=== PATIENT | female | born 1955 | race Caucasian/White ===

== ENCOUNTER 2018-09-28 09:23 | Outpatient (CLI) | payer OTHER, SELFPAY ==
[2018-09-28 12:03] LABS: ALT 28 U/L (12-78); AST 19 U/L (15-37); Albumin 3.7 g/dL (3.4-5.0); Alkaline Phosphatase 95 U/L (46-116); Anion Gap 10.3 mmol/L (3-11); BUN 19 mg/dL (7-18); Bilirubin, Total 0.7 mg/dL (0.2-1.0); CO2 26.7 mmol/L (21.0-32.0); CREATININE 1.06 mg/dL (0.55-1.02); Calcium 9.4 mg/dL (8.5-10.1); Chloride 104 mmol/L (98-107); Cholesterol 227 mg/dL (50-200); Estimated GFR 52.53 (mL/min/1.73m2); Glucose 100 mg/dL (70-100); HDL Cholesterol 64 mg/dL (40-60); LDL CHOLESTEROL 144 mg/dL (<100); Potassium 4.5 mmol/L (3.5-5.1); Sodium 141 mmol/L (136-145); Total Protein 7.2 g/dL (6.4-8.2); Triglyceride 114 mg/dL (30-150)
== END 2018-09-28 09:43 ==
PROVIDERS: PCP Family Medicine; Visit Provider Family Medicine
DX: E78.5 Hyperlipidemia, unspecified (principal); R03.0 Elevated blood-pressure reading, without diagnosis of hypertension; F32.9 Major depressive disorder, single episode, unspecified; N95.2 Postmenopausal atrophic vaginitis
CPT/HCPCS: 36415; 80053; 80061; 83721

== ENCOUNTER 2019-03-07 08:53 | Outpatient (CLI) | payer OTHER, SELFPAY ==
--- NOTE | 2019-03-07 11:00 | DI.RAD_ITS ---
SYMPTOMS/DIAGNOSIS: PAIN LT INDEX FINGER/PIP, NO TRAUMA, M79.645 LEFT INDEX FINGER: There is mild periarticular spurring seen at the interphalangeal joint as well as metacarpal phalangeal joint. No bony erosions are seen. Mild degenerative changes are also seen in the carpal region. 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
== END 2019-03-07 09:13 ==
PROVIDERS: PCP Family Medicine; Visit Provider Family Medicine
DX: M79.645 Pain in left finger(s) (principal); M19.032 Primary osteoarthritis, left wrist; M18.12 Unilateral primary osteoarthritis of first carpometacarpal joint, left hand
CPT/HCPCS: 73140

== ENCOUNTER → 2019-09-25 01:36 | Outpatient (CLI) | payer OTHER, SELFPAY ==
[2019-09-25 12:01] LABS: ALT 30 U/L (14-59); AST 16 U/L (15-37); Albumin 3.6 g/dL (3.4-5.0); Alkaline Phosphatase 92 U/L (46-116); BUN 20 mg/dL (7-18); Bilirubin, Total 0.4 mg/dL (0.2-1.0); Calcium 9.1 mg/dL (8.5-10.1); Calculated LDL 147 mg/dL; Chloride 106 mmol/L (98-107); Cholesterol 225 mg/dL (50-200); Glucose 99 mg/dL (70-100); HDL Cholesterol 53 mg/dL (40-60); Potassium 4.8 mmol/L (3.5-5.1); Sodium 142 mmol/L (136-145); Triglyceride 125 mg/dL (30-150)
== END ==
PROVIDERS: PCP Family Medicine; Visit Provider Family Medicine
DX: E78.5 Hyperlipidemia, unspecified (principal)
CPT/HCPCS: 36415; 80053; 80061

== ENCOUNTER 2020-04-04 07:27 | Outpatient (CLI) | payer OTHER, SELFPAY ==
--- NOTE | 2020-04-04 11:20 | DI.RAD_ITS ---
EXAM: XR KNEE RT 4V AP,LAT,IRA,PAT CLINICAL HISTORY: increased pain /swelling (r) knee/fall this winter,M25.561. TECHNIQUE: 2D digital imaging was performed. FINDINGS: BONES: No acute fracture is present. No bony destructive lesion is seen. Periarticular spurring is se en in all 3 joint compartments. JOINTS: The knee is normally aligned. No joint effusion is seen. Marked joint space narrowing is seen at the patellofemoral joint. SOFT TISSUE: Normal. IMPRESSION: Osteoarthritis of the right knee. DATA REPOSITORY: RADIATION DOSE DELIVERED:
== END 2020-04-04 07:47 ==
PROVIDERS: PCP Family Medicine; Visit Provider Family Medicine
DX: M25.561 Pain in right knee (principal); M17.11 Unilateral primary osteoarthritis, right knee
CPT/HCPCS: 73564

== ENCOUNTER 2020-06-03 11:44 | Outpatient (CLI) | payer OTHER, SELFPAY ==
--- NOTE | 2020-06-03 11:57 | DI.RAD_ITS ---
EXAM: XR CHEST 2V PA LATERAL CLINICAL HISTORY: dry cough x months/non smoker R05 COUGH TECHNIQUE: 2D digital imaging was performed. COMPARISON: No exams were available for comparison FINDINGS: MEDIASTINUM: Normal. HEART: Normal. PULMONARY VASCULATURE: Normal. LUNGS: Clear. PLEURAL SPACE: No pleural effusion or pneumothorax. BONE:Degenerative changes are seen in the spine. OTHER FINDINGS:Normal. IMPRESSION: No acute pulmonary findings. DATA REPOSITORY: RADIATION DOSE DELIVERED:
== END 2020-06-03 12:04 ==
PROVIDERS: PCP Family Medicine; Visit Provider Family Medicine
DX: R05 Cough (principal)
CPT/HCPCS: 71046

== ENCOUNTER 2020-06-14 07:59 | Outpatient (CLI) | payer OTHER, SELFPAY ==
[2020-06-16 00:16] LABS: COVID-19 RT-PCR Result NEGATIVE (Negative)
== END 2020-06-14 08:19 ==
PROVIDERS: PCP Family Medicine; Visit Provider Family Medicine
DX: R05 Cough (principal)
CPT/HCPCS: U0003

== ENCOUNTER 2020-06-17 03:06 | Outpatient (CLI) | payer OTHER, SELFPAY ==
[2020-06-17] MEDS: Albuterol HFA 18 GM 200 PUFF INH IH (10:45)
[2020-06-17] MEDS: Inhaler, Assist Device 1 EACH MC (10:46)
--- NOTE | 2020-06-19 09:37 | W.PFT ---
Date of service: 06/17/20 Time of Service: 10:05 Pulmonary Function Test Result Interpretation Spirometry: Spirometry shows mild obstructive airways disease with significant bronchodilator response Lung Volumes: Showed no evidence of restriction Diffusion Capacity: Is mildly reduced even when corrected to alveolar volume Airway Pressure: Normal Impression Mild obstructive airways disease, associated with significant bronchodilator response and mild diffusion defect Clinical Correlation therefore is recommended.
== END 2020-06-17 03:26 ==
PROVIDERS: PCP Family Medicine; Visit Provider Family Medicine
DX: R05 Cough (principal)
CPT/HCPCS: 94060; 94726; 94729

== ENCOUNTER 2021-03-26 02:58 | Outpatient (CLI) | payer MEDICARE, SELFPAY ==
[2021-03-26 13:18] LABS: ALT 31 U/L (14-59); AST 12 U/L (15-37); Albumin 3.8 g/dL (3.4-5.0); Alkaline Phosphatase 98 U/L (46-116); Anion Gap 9.7 mmol/L (3-11); BUN 24 mg/dL (7-18); Bilirubin, Total 0.6 mg/dL (0.2-1.0); CO2 25.3 mmol/L (21.0-32.0); CREATININE 1.2 mg/dL (0.55-1.02); Calcium 9.3 mg/dL (8.5-10.1); Calculated LDL 155 mg/dL (<100); Chloride 106 mmol/L (98-107); Cholesterol 240 mg/dL (<200); Estimated GFR 45.09 (mL/min/1.73m2); Glucose 99 mg/dL (74-106); HDL Cholesterol 66 mg/dL (40-60); Potassium 4.5 mmol/L (3.5-5.1); Sodium 141 mmol/L (136-145); Total Protein 7.1 g/dL (6.4-8.2); Triglyceride 95 mg/dL (<150)
== END 2021-03-26 02:59 | disposition home or self-care (01) ==
LOC: LOS 02:58
PROVIDERS: PCP Family Medicine; Visit Provider Family Medicine
DX: E78.5 Hyperlipidemia, unspecified (principal)
CPT/HCPCS: 36415; 80053; 80061

== ENCOUNTER 2021-06-02 10:20 | Outpatient (REF) | payer MEDICARE, SELFPAY | END 2021-06-02 10:21 | disposition home or self-care (01) | LOC: LBN 10:20 | PROVIDERS: PCP Family Medicine; Visit Provider Physician Assistant | DX: N39.0 Urinary tract infection, site not specified (principal) | CPT/HCPCS: 87077; 87086; 87186 ==

== ENCOUNTER 2021-09-22 10:24 | Outpatient (CLI) | payer MEDICARE, SELFPAY ==
[2021-09-22 13:18] LABS: Anion Gap 9.3 mmol/L (3-11); BUN 22 mg/dL (7-18); CO2 29.7 mmol/L (21.0-32.0); CREATININE 1.1 mg/dL (0.55-1.02); Calcium 9.4 mg/dL (8.5-10.1); Calculated LDL 174 mg/dL (<100); Chloride 103 mmol/L (98-107); Cholesterol 265 mg/dL (<200); Estimated GFR 49.85 (mL/min/1.73m2); Glucose 103 mg/dL (74-106); HDL Cholesterol 58 mg/dL (40-60); Potassium 4.2 mmol/L (3.5-5.1); Sodium 142 mmol/L (136-145); Triglyceride 167 mg/dL (<150)
== END 2021-09-22 10:25 | disposition home or self-care (01) ==
LOC: LOS 10:25
PROVIDERS: PCP Family Medicine; Visit Provider Family Medicine
DX: E78.2 Mixed hyperlipidemia (principal)
CPT/HCPCS: 36415; 80048; 80061

== ENCOUNTER 2021-12-23 01:55 | Outpatient (CLI) | payer MEDICARE, SELFPAY ==
[2021-12-23 12:25] LABS: ALT 39 U/L (14-59); AST 22 U/L (15-37); Albumin 3.8 g/dL (3.4-5.0); Alkaline Phosphatase 96 U/L (46-116); Anion Gap 6.9 mmol/L (3-11); BUN 23 mg/dL (7-18); Bilirubin, Total 0.5 mg/dL (0.2-1.0); CO2 31.1 mmol/L (21.0-32.0); CREATININE 1.1 mg/dL (0.55-1.02); Calcium 9.8 mg/dL (8.5-10.1); Calculated LDL 158 mg/dL (<100); Chloride 103 mmol/L (98-107); Cholesterol 252 mg/dL (<200); Estimated GFR 49.85 (mL/min/1.73m2); Glucose 103 mg/dL (74-106); HDL Cholesterol 66 mg/dL (40-60); Sodium 141 mmol/L (136-145); Total Protein 7.2 g/dL (6.4-8.2); Triglyceride 142 mg/dL (<150)
== END 2021-12-23 01:56 | disposition home or self-care (01) ==
LOC: LBO 01:55
PROVIDERS: PCP Family Medicine; Visit Provider Family Medicine
DX: E78.2 Mixed hyperlipidemia (principal); I10 Essential (primary) hypertension
CPT/HCPCS: 36415; 80053; 80061

== ENCOUNTER → 2022-06-11 01:42 | Outpatient (CLI) | payer MEDICARE, SELFPAY ==
--- NOTE | 2022-06-11 13:57 | DI.DEXA_ITS ---
Exam(s) XR DEXA BONE DENSITY W/WO RACHAEL EXAM: XR DEXA BONE DENSITY W/WO RACHAEL CLINICAL HISTORY: screen osteoporosis, hyperlipidemia, E78.2, Z13.820, Z78.0 TECHNIQUE: COMPARISON: No exams were available for comparison FINDINGS: Lateral Spine Image: Unremarkable. No compression deformities identified. Left hip: Total T-Score: -0.1 Total Z-Score: 1.2 T- and Z-scores: Within normal limits. Lumbar Spine: Total T-Score: 1.8 Total Z-Score: 3.6 T- and Z-scores: Within normal limits. IMPRESSION: No evidence of osteoporosis.
== END ==
PROVIDERS: PCP Family Medicine; Visit Provider Family Medicine
DX: Z13.820 Encounter for screening for osteoporosis; Z78.0 Asymptomatic menopausal state
CPT/HCPCS: 77080

== ENCOUNTER 2022-11-07 13:04 | Outpatient (CLI) | payer MEDICARE, SELFPAY ==
--- NOTE | 2022-11-07 13:00 | RT.EKG_ITS ---
APPROVED REPORT Exam: Resting ECG Reason for Exam: Dizziness Patient Location: O HR:61 bpm ECG Measurements Heart Rate 61 AXIS AL 150 P 51 QRSd 112 QRS 31 QT 444 T 36 QTc 448 Conclusion Sinus rhythm...normal P axis, V-rate 50- 99 Borderline intraventricular conduction delay...QRSd >112mS Abnormal R-wave progression, early transition...QRS area>0 in V2
== END 2022-11-07 13:05 | disposition home or self-care (01) ==
LOC: DI.CM 13:06
PROVIDERS: PCP Family Medicine; Visit Provider Nurse Practitioner Family
DX: R11.0 Nausea (principal); R61 Generalized hyperhidrosis
CPT/HCPCS: 93010

== ENCOUNTER 2022-11-07 13:52 | Emergency (ER) | payer MEDICARE, SELFPAY ==
[2022-11-07] VITALS (142 sets, daily range): BP systolic 124–164; BP diastolic 64–99; PULSE 48–68; RESP 8–22; TEMP 36.4–36.5; O2SAT 99
--- NOTE | 2022-11-07 13:45 | RT.EKG_ITS ---
APPROVED REPORT Exam: Resting ECG Reason for Exam: Patient Location: E HR:53 bpm ECG Measurements Heart Rate 53 AXIS SD 148 P 72 QRSd 114 QRS 31 QT 458 T 45 QTc 430 Conclusion Sinus bradycardia...rate< 60 Posterior infarct, old...prom R T, V1-V3 or Q >40mS, V7-V9 Abnormal T, consider ischemia, lateral leads...T <-0.20mV, I aVL V5 V6 ST dep I, II, V4-6
--- OUTSIDE RECORDS SUMMARY | 2022-11-07 14:25 | XMS_ITS ---
:1955 Author Organization [facility] Address [address] [place] [address] Care Team Providers Name Role Phone Melody Matt Unavailable Unavailable PROBLEMS Type Condition ICD9-CM Code [id number] Code Onset Condition SNO MED Code Dates Status Problem Pain in M79.673 Active [id number] unspecified foot ALLERGIES Substance Reaction Event Type Date Status Latex Rash Non Drug Allergy Sep, Active Tetracycline HCl Rash Drug Allergy Sep, Active Terconazole Rash Drug Allergy Sep, Active ENCOUNTERS Encounter Location Date Diagnosis [facility] [address] [address] Sep, [place] [address] foot M72.2 [facility] [address] Jul, [place] [address] foot M72.2 [facility] [address] [place], [place] Jun, [address] IMMUNIZATIONS No Known Immunizations SOCIAL HISTORY Qualifiers Date Never Smoker REASON FOR REFERRAL FUNCTIONAL STATUS PLAN OF CARE Activity Details Follow Up prn Reason: Future Test X Foot R 3V [id number] VITAL SIGNS Height 68 in 2019-10-04 Height 68 in 2019-08-02 Weight 254 lbs 2019-10-04 Weight 252 lbs 2019-08-02 BMI 38.62 kg/m2 2019-10-04 BMI 38.31 kg/m2 2019-08-02 Temperature 97.4 degrees Fahrenheit 2019-10-04 Temperature 97.9 degrees Fahrenheit 2019-08-02 Heart Rate 56 /min 2019-10-04 Heart Rate 65 /min 2019-08-02 Respiratory Rate 18 /min 2019-10-04 Respiratory Rate 18 /min 2019-08-02 Oximetry 97 % 2019-10-04 Oximetry 97 % 2019-08-02 Blood pressure systolic 130 mm Hg 2019-10-04 Blood pressure diastolic 70 mm Hg 2019-10-04 MEDICATIONS Medication Instructions Dosage Frequency Start End Duration Statu s Date Date Pravastatin Orally Once a 1 tablet 24h 30 day(s) Act mary Sodium 20 MG day Premarin 0.625 as directed Activ e MG/GM Citalopram Orally Once a 1.5 tablet 24h Acti ve Hydrobromide 20 day MG Clobetasol Prop Externally 1 application 12h 10 day( s) Active Emollient Base Twice a day to affected 0.05 % area Meloxicam 15 MG Orally Once a 1 tablet 24h 30 day(s) Active day -OTC, HERBALS Active Varies PROCEDURES Procedure Date Ordered Result Body Site [facility]([id number]) Aug 02, 2019 RESULTS Name Result Date Reference Range X Foot R 3V 2019-08-02 Image Accessible MULTIPLE LABS 2018-09-28 REASON FOR VISIT Plantar fasciitis f/u, referral done, last seen on 08/02/19 by [facility] for Plantar fasciitis R foot-KG, Alimeds dispensed at last visit, pt states that her pain gotten better since her last , pt states thatshe is still using the alimaeds that she was given , plantar fasciitis referral done, NEW POD PATIENT , per referral from Blaine Coe D.O. 2 week hx of pain in the posterior pad of the right heel, no trauma history, no hx of similar pain, and pain is intermittent , per last office note right heel pain, likely mild plantar fasciitis versus bursitis. Plan green super feet inserts, ice, and ibuprofen , pt states she has been in pain since 06/01/19 in her right foot and the arch of her right foot -mrr, pt states she takes advil and ices her foot to no avail., Pt has inserts that her ordered off of [employer].These insoles are what Dr. Coe suggested she get., Pt has not had xrays taken. She said she suggested to Dr. Coe that maybe xrays were in order but to no avail. -mrr, updating chart Insurance Providers [facility] Member Patient Patient Patient Patient Patient Subscriber Subscriber Subscriber Group Insurance Plan Plan Plan Plan ID Relationship Address Phone Name Date of ID Name Date of No Type Insurance Insurance Insurance Coverage to Subscriber Address Phone Name Dates MVP [address] MVP self [place] [id number] HEALTHCARE [id number] [id number] SELF PAY [address] SELF PAY self [place] [id number] [place] [id number] SELF PAY self [place] [id number] [place] INSURANCE
--- NOTE | 2022-11-07 14:28 | W.ED.GENAD ---
Discharge Plan Disposition Patient Disposition: Home Condition: Stable Discharge Details Clinical Impression: Bradycardia, Nausea Primary Care Provider: Alexandra Baugh ED Provider: Marcus Mcginnis Home Meds and New Rx's Prescriptions: Continued hydrochlorothiazide 25 mg tablet 25 mg PO DAILY Label Comments: TAKE ONE TABLET BY MOUTH EVERY DAY triamcinolone acetonide 0.1 % ointment 1 applic topical BID Qty: 80 1RF Rx Instructions: to affected area PREMARIN CREAM 45 gm VG BI WEEKLY cholecalciferol (vitamin D3) 1,000 UNIT capsule 1,000 unit PO DAILY Label Comments: 06/09/16 pt reports only uses in winter months. bmr clobetasol-emollient 45 GM cream 45 gm Topical BID PRN Asmanex HFA 100 mcg/actuation HFA aerosol inhaler 1 puff inhalation BID Qty: 13 12RF albuterol sulfate 90 mcg/actuation HFA aerosol inhaler 2 inh IH QID PRN (Reason: dry cough) Qty: 18 4RF atorvastatin 40 mg tablet 40 mg PO DAILY Qty: 90 3RF Discharge Instructions Instructions: Ondansetron (By mouth), Bradycardia (ED) Additional Instructions: Please contact your primary care physician to arrange follow-up. Call first thing Wednesday morning. I have ordered a cardiac Holter monitor to expedite outpatient work-up. Return to the ER immediately for any worsening or new concerning symptoms. Referrals: Alexandra Baugh MD [Primary Care Provider] - Discharge Orders Other Ambulatory Orders: Holter Monitor (Routine) Timeframe: 1 Week Facility: [facility] - Location: Respiratory Therapy Ordered By: Marcus Mcginnis Medical Decision Making 1430 --67-year-old female with history of hyperlipidemia, hypertension, chronic kidney disease, here with nausea this morning, associated diaphoresis and generally not feeling well earlier upon waking. Patient has had no chest pain or shortness of breath. Patient seen at [facility] and had EKG that was noted to be abnormal. Consider ACS. I obtained an EKG here and reviewed and interpreted: Please see report, ST depressions are noted lead I, II, V5 and V6, sinus bradycardia. Plan to check troponin. I will give Zofran IV for nausea. -- Initial troponin negative. Patient reassessed and continues to have no chest discomfort. Nausea improved. Mild hypokalemia noted. Will give kdur 20meq PO. -- Repeat delta troponin negative. Patient reassessed and remained stable. She has had episodes of bradycardia here with resting heart rate in the 50s dropping down to 47 at the lowest. BP normal. I am concerned that bradycardia may be contributing to her symptoms today. I will ask care management assist in arranging timely outpatient follow-up with her PCP and I will order a Holter monitor to expedite outpatient work-up. Usual and customary discharge instructions were reviewed with patient including strict instructions return immediately for any worsening or new concerning symptoms Lab Data Lab results reviewed: Yes I reviewed the patient's lab results. Labs: Laboratory Tests Range/Units 11/07/22 11/07/22 11/07/22 14:25 14:25 17:10 WBC (4.4-10.8) 10^3/uL 10.05 RBC (3.93-5.22) 10^6/uL 4.25 Hgb (11.2-15.7) g/dL 13.3 Hct (36.0-46.0) % 40.5 MCV (80-95) fL 95 MCH (27.0-33.0) pg 31.3 MCHC (32.0-36.0) % 32.8 RDW (11.7-14.6) % 12.7 Plt Count (130-400) 10^3/uL 281 MPV (8.0-11.0) fL 12.2 H Immature Gran % 0.2 Neutrophils % 73.1 Lymphocytes % 21.2 Monocytes % 5.2 Eosinophils % 0.1 Basophils % 0.2 Nucleated RBC % (0.0-0.3) % 0.0 Absolute Neutrophils (1.2-6.7) 10^3/uL 7.35 H Absolute Lymphocytes (1.2-3.4) 10^3/uL 2.13 Absolute Monocytes (0.1-0.8) 10^3/uL 0.52 Absolute Eosinophils (0.0-0.7) 10^3/uL 0.01 Absolute Basophils (0.0-0.2) 10^3/uL 0.02 Sodium (136-145) mmol/L 138 Potassium (3.5-5.1) mmol/L 3.2 L Chloride (98-107) mmol/L 102 Carbon Dioxide (21.0-32.0) mmol/L 29.8 Anion Gap (3-11) mmol/L 6.2 BUN (7-18) mg/dL 18 Creatinine (0.55-1.02) mg/dL 1.0 Est GFR (CKD-EPI 2020) (mL/min/1.73m2) 62.13 Glucose (74-106) mg/dL 130 H Calcium (8.5-10.1) mg/dL 9.1 Magnesium (1.8-2.4) mg/dL 1.9 Total Bilirubin (0.2-1.0) mg/dL 0.7 AST (15-37) U/L 24 ALT (14-59) U/L 32 Alkaline Phosphatase (46-116) U/L 113 Troponin I (<or=60) ng/L < 50 < 50 Total Protein (6.4-8.2) g/dL 7.5 Albumin (3.4-5.0) g/dL 3.8 TSH (0.36-3.74) uIU/mL Range/Units 11/07/22 17:10 WBC (4.4-10.8) 10^3/uL RBC (3.93-5.22) 10^6/uL Hgb (11.2-15.7) g/dL Hct (36.0-46.0) % MCV (80-95) fL MCH (27.0-33.0) pg MCHC (32.0-36.0) % RDW (11.7-14.6) % Plt Count (130-400) 10^3/uL MPV (8.0-11.0) fL Immature Gran % Neutrophils % Lymphocytes % Monocytes % Eosinophils % Basophils % Nucleated RBC % (0.0-0.3) % Absolute Neutrophils (1.2-6.7) 10^3/uL Absolute Lymphocytes (1.2-3.4) 10^3/uL Absolute Monocytes (0.1-0.8) 10^3/uL Absolute Eosinophils (0.0-0.7) 10^3/uL Absolute Basophils (0.0-0.2) 10^3/uL Sodium (136-145) mmol/L Potassium (3.5-5.1) mmol/L Chloride (98-107) mmol/L Carbon Dioxide (21.0-32.0) mmol/L Anion Gap (3-11) mmol/L BUN (7-18) mg/dL Creatinine (0.55-1.02) mg/dL Est GFR (CKD-EPI 2020) (mL/min/1.73m2) Glucose (74-106) mg/dL Calcium (8.5-10.1) mg/dL Magnesium (1.8-2.4) mg/dL Total Bilirubin (0.2-1.0) mg/dL AST (15-37) U/L ALT (14-59) U/L Alkaline Phosphatase (46-116) U/L Troponin I (<or=60) ng/L Total Protein (6.4-8.2) g/dL Albumin (3.4-5.0) g/dL TSH (0.36-3.74) uIU/mL 0.65 HPI General Mode of arrival: ambulatory. Date/Time Provider Initiated Documentation: 11/07/22 14:05. Limitations to Documentation: no limitations. Information obtained by: patient. HPI Narrative: 67-year-old female with history of chronic kidney disease, hyperlipidemia, mild persistent asthma, hypertension, obesity, here with chief complaint of nausea. Patient notes she woke up this morning was feeling nauseous and having associated diaphoresis. Nausea was moderate and comes in waves. It has persisted all morning. She went to [facility] who got an EKG that had abnormalities and she was sent here for further evaluation. Patient denies chest pain. She denies associated shortness of breath. Related Data Home Medications Medication Instructions Recorded Confirmed Premarin Cream 45 gm vaginal BI WEEKLY 06/04/14 11/07/22 cholecalciferol (vitamin D3) 25 1,000 unit PO DAILY 09/18/15 11/07/22 mcg (1,000 unit) capsule clobetasol-emollient 0.05 % 45 gm topical BID PRN 01/16/16 11/07/22 topical cream mometasone 100 mcg/actuation HFA 1 puff inhalation BID #13 grams 11/28/21 11/07/22 aerosol inhaler (Asmanex HFA) albuterol sulfate 90 mcg/actuation 2 inh inhalation QID PRN dry cough 12/01/21 11/07/22 aerosol inhaler #18 grams atorvastatin 40 mg tablet 40 mg PO DAILY #90 tabs 12/23/21 11/07/22 triamcinolone acetonide 0.1 % 1 applic topical BID #80 grams 01/16/22 11/07/22 topical ointment hydrochlorothiazide 25 mg tablet 25 mg PO DAILY 10/02/22 11/07/22 Previous Rx's Medication Instructions Recorded mometasone 100 mcg/actuation HFA 1 puff inhalation BID #13 grams 11/28/21 aerosol inhaler (Asmanex HFA) albuterol sulfate 90 mcg/actuation 2 inh inhalation QID PRN dry cough 12/01/21 aerosol inhaler #18 grams atorvastatin 40 mg tablet 40 mg PO DAILY #90 tabs 12/23/21 triamcinolone acetonide 0.1 % 1 applic topical BID #80 grams 01/16/22 topical ointment Allergies Allergy/AdvReac Type Severity Reaction Status Date / Time latex Allergy Mild Rash Verified 11/07/22 14:01 terconazole Allergy Mild Vaginal Verified 11/07/22 14:01 Contact Dermatitis tetracycline Allergy Mild Rash Verified 11/07/22 14:01 General Stated Complaint: Chest Pain NIMESH: 3 Review of Systems Constitutional Constitutional: Denies fever(s) Cardiovascular Cardiovascular: Denies chest pain and Denies dyspnea Respiratory Respiratory: Denies dyspnea Gastrointestinal Gastrointestinal: Denies abdominal pain PFSH All Active Problems (Updated 11/07/22 @ 17:55 by Marcus Mcginnis MD) Hyperlipidemia (Acute) Chronic kidney disease, stage 3a (Acute) 12/2021, borderline, creatinine-1.1, status post remote nephrectomy Mild persistent asthma (Acute) Essential hypertension (Acute) Benign essential tremor (Acute) Dyshidrotic eczema (Acute) 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 Father , AGE 74 Diabetes Sister Depression Brother Hyperlipidemia Diabetes Brother Heart disease Son No problems noted. Son Congenital adrenal hyperplasia Maternal Grandmother , AGE 90 Heart disease Colon cancer Maternal Grandfather No problems noted. Paternal Grandmother , age 90 No problems noted. Paternal Grandfather No problems noted. Social History Smoking/Tobacco Use Status: Never Second Hand Exposure: Yes Smoking risk assessment performed?: Yes Alcohol Intake: current Alcohol Intake frequency: holidays/special occasions only Alcohol type: hard liquor Substance use type: former substance user and marijuana Caregiver/Support person: Yes Household members: spouse Housing: house Communication Needs: None Do you need help understanding health information?: Never Pets and animals: Yes Pets and animals: cat(s), bird(s) and farm animals Sexually active: Yes Do you think of yourself as: straight/heterosexual Current gender identity: decline to answer What is your relationship status?: living with partner How often do you talk on the phone with friends or family?: three or more times per week How often do you get together with friends or relatives?: once per week How often do you attend cheondoism or buddhism services?: 1-3 times per year Do you belong to any clubs or organized social groups?: yes Panel score (0-1 are the most socially isolated patients): 3 What type of physical activity do you participate in: bicycling and other Details: stationary bike Duration: 15-30 minutes/day Frequency: 1-2 times per week Johanne/Zoroastrianism: Adventism Special johanne needs: Yes (Would like a waiter/waitress club ) Seatbelt use: always Drive intox or ride w/intox cattle driver: No Do you feel safe at home: Yes Do you feel safe in your relationship?: Yes Exam Const General: cooperative and no acute distress Orientation: alert and awake HENMT Mouth: moist mucous membranes Eyes Conjunctivae: normal conjunctivae Sclera: normal sclerae Neck Neck: trachea midline Resp Auscultation: clear to auscultation bilaterally, no rales, no rhonchi and no wheezes Cardio Rate: regular rate and not tachycardic Rhythm: regular rhythm GI Palpation: soft, not firm, no guarding, no masses, not rigid and nontender Skin General skin exam: no rashes or lesions noted Other: dry Neuro General: patient alert, patient awake, patient oriented x3 and tone normal Extrem General: no calf tenderness and no edema Psych Appearance: grossly normal Mental Status: mental status grossly normal Speech and Movement: speech and movement normal Affect: anxious affect Course Vital Signs Vital signs: Vital Signs Temperature 36.4 C L 11/07/22 13:59 Pulse 57 L 11/07/22 13:59 Respiratory Rate 18 11/07/22 13:59 Blood Pressure 164/86 H 11/07/22 13:59 Pulse Oximetry 99 11/07/22 13:59 Temperature 36.4 C L 11/07/22 13:59 Temperature Source Temporal Artery Scan 11/07/22 13:59 Pulse 57 L 11/07/22 13:59 Respiratory Rate 18 11/07/22 14:02 Respiratory Effort Non-Labored 11/07/22 14:02 Respiratory Depth Normal 11/07/22 14:02 Respiratory Pattern Normal 11/07/22 14:02 Blood Pressure 164/86 H 11/07/22 13:59 Blood Pressure Position Sitting 11/07/22 13:59 Pulse Oximetry 99 11/07/22 13:59 Oxygen Delivery Method Room Air 11/07/22 13:59 Oxygen Flow Rate 0 11/07/22 13:59
--- NOTE | 2022-11-07 14:38 | DI.RAD_ITS ---
Exam(s) XR PORTABLE CHEST AP EXAM: XR PORTABLE CHEST AP CLINICAL HISTORY: chest pain. TECHNIQUE: 2D digital imaging was performed. COMPARISON: CR XR CHEST 2V PA LATERAL from 06/03/2020 FINDINGS: Single AP portable view. Heart size is upper normal. The mediastinum is not widened. In subsegmental platelike atelectasis in both lung bases. No confluent infiltrates. No pleural effu sions. IMPRESSION: There is subsegmental platelike atelectasis evident in both lung bases. DATA REPOSITORY: RADIATION DOSE DELIVERED:
[2022-11-07 14:44] LABS: Abs Immature Grans 0.02 10^3/uL (0.0-0.06); Absolute Basophil Count 0.02 10^3/uL (0.0-0.2); Absolute Eosinophil Count 0.01 10^3/uL (0.0-0.7); Absolute Lymphocyte Count 2.13 10^3/uL (1.2-3.4); Absolute Monocyte Count 0.52 10^3/uL (0.1-0.8); Absolute Neutrophil Count 7.35 10^3/uL (1.2-6.7); Basophils % 0.2; Eosinophils % 0.1; HCT 40.5 % (36.0-46.0); HGB 13.3 g/dL (11.2-15.7); Immature Grans % 0.2; Lymphocytes % 21.2; MCH 31.3 pg (27.0-33.0); MCHC 32.8 % (32.0-36.0); MCV 95 fL (80-95); MPV 12.2 fL (8.0-11.0); Monocytes % 5.2; Neutrophils % 73.1; Platelet Count 281 10^3/uL (130-400); RBC 4.25 10^6/uL (3.93-5.22); RDW 12.7 % (11.7-14.6); RDW-SD 44.7 fL; WBC 10.05 10^3/uL (4.4-10.8)
--- NOTE | 2022-11-07 14:50 | DI.VRAD_ITS ---
PROCEDURE INFORMATION: Exam: XR Chest Exam date and time: 11/07/2022 2:24 PM Age: 67 years old Clinical indication: Pain; Chest pressure TECHNIQUE: Imaging protocol: Radiologic exam of the chest. Views: 1 view. COMPARISON: CR XR CHEST 2V PA LATERAL 06/03/2020 11:54 AM FINDINGS: Lungs: Unremarkable. No consolidation. Pleural spaces: Unremarkable. No pleural effusion. No pneumothorax. Heart/Mediastinum: Unremarkable. No cardiomegaly. Bones/joints: Unremarkable. IMPRESSION: No acute findings. Dictated and Authenticated by: Honorio Jha MD. Ordering:PATRICIA Velazquez MD
[2022-11-07 14:57] LABS: ALT 32 U/L (14-59); AST 24 U/L (15-37); Albumin 3.8 g/dL (3.4-5.0); Alkaline Phosphatase 113 U/L (46-116); Anion Gap 6.2 mmol/L (3-11); BUN 18 mg/dL (7-18); Bilirubin, Total 0.7 mg/dL (0.2-1.0); CO2 29.8 mmol/L (21.0-32.0); Calcium 9.1 mg/dL (8.5-10.1); Chloride 102 mmol/L (98-107); Estimated GFR 62.13 (mL/min/1.73m2); Glucose 130 mg/dL (74-106); Magnesium 1.9 mg/dL (1.8-2.4); Potassium 3.2 mmol/L (3.5-5.1); Sodium 138 mmol/L (136-145); Total Protein 7.5 g/dL (6.4-8.2); Troponin I < 50 ng/L (<or=60)
[2022-11-07] MEDS: Ondansetron 4 MG/2 ML VIAL IVP (15:00)
[2022-11-07] MEDS: Potassium Chloride 20 MEQ TABCR PO (15:32)
[2022-11-07 17:32] LABS: Troponin I < 50 ng/L (<or=60)
[2022-11-07 17:37] LABS: TSH (W/Ref FT4) 0.65 uIU/mL (0.36-3.74)
--- NOTE | 2022-11-07 17:45 | RT.EKG_ITS ---
APPROVED REPORT Exam: Resting ECG Reason for Exam: bradycardia Patient Location: E HR:50 bpm ECG Measurements Heart Rate 50 AXIS ID 160 P 68 QRSd 117 QRS 26 QT 458 T 26 QTc 416 Conclusion Sinus bradycardia...rate< 60 Nonspecific intraventricular conduction delay...QRSd >115mS, not LBBB/RBBB
[2022-11-07] MEDS: Ondansetron O.D.T. 4 MG TABEF, 3 TABS/BTL PO (18:17)
--- NOTE | 2022-11-07 18:20 | NUR.NOTE ---
Nursing Note: Referral faxed to PCP for symptomatic bradycardia for next week.
== END 2022-11-07 18:25 | disposition home or self-care (01) ==
PROVIDERS: Emergency Provider Student in an Organized Health Care Education/Training Program; PCP Family Medicine
DX: R00.1 Bradycardia, unspecified (principal); R11.0 Nausea; E78.5 Hyperlipidemia, unspecified; E87.6 Hypokalemia; J45.30 Mild persistent asthma, uncomplicated; I12.9 Hypertensive chronic kidney disease with stage 1 through stage 4 chronic kidney disease, or unspecified chronic kidney disease; N18.9 Chronic kidney disease, unspecified; Z79.52 Long term (current) use of systemic steroids
CPT/HCPCS: 36415; 80053; 93005; 96374; 99284; 71045; 83735; 84443; 84484; 85025; 93010; 99285; J2405

== ENCOUNTER 2022-11-07 14:18 | Outpatient (REF) | payer MEDICARE, SELFPAY | END 2022-11-07 14:19 | disposition home or self-care (01) | LOC: LBN 14:18 | PROVIDERS: PCP Family Medicine; Visit Provider Nurse Practitioner Family | DX: N39.0 Urinary tract infection, site not specified (principal) | CPT/HCPCS: 87086 ==

== ENCOUNTER 2022-11-10 10:03 | Outpatient (CLI) | payer MEDICARE, SELFPAY ==
[2022-11-10 13:05] LABS: Anion Gap 7.4 mmol/L (3-11); BUN 22 mg/dL (7-18); CO2 30.6 mmol/L (21.0-32.0); CREATININE 1.1 mg/dL (0.55-1.02); Calcium 9.5 mg/dL (8.5-10.1); Chloride 102 mmol/L (98-107); Estimated GFR 55.42 (mL/min/1.73m2); Glucose 105 mg/dL (74-106); Potassium 3.8 mmol/L (3.5-5.1); Sodium 140 mmol/L (136-145)
== END 2022-11-10 10:04 | disposition home or self-care (01) ==
LOC: LOS 10:03
PROVIDERS: PCP Family Medicine; Referring Provider Nurse Practitioner Family; Visit Provider Nurse Practitioner Family
DX: E87.6 Hypokalemia (principal); I10 Essential (primary) hypertension; N18.31 Chronic kidney disease, stage 3a
CPT/HCPCS: 36415; 80048

== ENCOUNTER 2022-11-19 10:21 | Outpatient (RCR) | payer MEDICARE, SELFPAY ==
--- NOTE | 2022-11-19 10:15 | HOLTER_ITS ---
APPROVED REPORT Conclusion This is a 48-hour Holter monitor ordered for bradycardia Rhythm throughout was sinus with an average heart rate of 66. Minimum was 45, maximum 128 There were very rare isolated atrial and ventricular ectopic beats Several self-limited atrial runs occurred, generally 3-5 beats in duration There was no atrial fibrillation, no SVT, no high-grade AV block, no pauses greater than 3 seconds There appeared to be no patient symptoms
== END 2022-12-15 23:59 | disposition home or self-care (01) ==
LOC: CARDOPNVT 10:21
PROVIDERS: PCP Family Medicine; Visit Provider Student in an Organized Health Care Education/Training Program
DX: I49.8 Other specified cardiac arrhythmias (principal)
CPT/HCPCS: 93227; 93225; 93226

== ENCOUNTER 2023-03-30 03:13 | Outpatient (CLI) | payer MEDICARE, SELFPAY ==
[2023-03-30 13:19] LABS: ALT 40 U/L (14-59); Anion Gap 9.1 mmol/L (3-11); BUN 21 mg/dL (7-18); CO2 29.9 mmol/L (21.0-32.0); CREATININE 1.1 mg/dL (0.55-1.02); Calcium 9.4 mg/dL (8.5-10.1); Calculated LDL 87 mg/dL (<100); Chloride 103 mmol/L (98-107); Cholesterol 167 mg/dL (<200); Estimated GFR 55.07 (mL/min/1.73m2); Glucose 113 mg/dL (74-106); HDL Cholesterol 59 mg/dL (40-60); Potassium 3.7 mmol/L (3.5-5.1); Sodium 142 mmol/L (136-145); Triglyceride 109 mg/dL (<150)
== END 2023-03-30 03:14 | disposition home or self-care (01) ==
PROVIDERS: PCP Family Medicine; Visit Provider Family Medicine
DX: N18.31 Chronic kidney disease, stage 3a (principal); E78.2 Mixed hyperlipidemia
CPT/HCPCS: 36415; 80048; 80061; 84460

== ENCOUNTER 2023-04-06 02:57 | Outpatient (CLI) | payer MEDICARE, SELFPAY ==
[2023-04-06 12:48] LABS: Abs Immature Grans 0.02 10^3/uL (0.0-0.06); Absolute Basophil Count 0.05 10^3/uL (0.0-0.2); Absolute Eosinophil Count 0.26 10^3/uL (0.0-0.7); Absolute Lymphocyte Count 3.39 10^3/uL (1.2-3.4); Absolute Monocyte Count 0.73 10^3/uL (0.1-0.8); Absolute Neutrophil Count 2.68 10^3/uL (1.2-6.7); Basophils % 0.7; Eosinophils % 3.6; HCT 41.6 % (36.0-46.0); HGB 13.3 g/dL (11.2-15.7); Immature Grans % 0.3; Lymphocytes % 47.5; MCH 30.6 pg (27.0-33.0); MCV 96 fL (80-95); MPV 11.7 fL (8.0-11.0); Monocytes % 10.2; Neutrophils % 37.7; Platelet Count 300 10^3/uL (130-400); RBC 4.34 10^6/uL (3.93-5.22); RDW 12.8 % (11.7-14.6); RDW-SD 46.1 fL; WBC 7.13 10^3/uL (4.4-10.8)
[2023-04-09 16:27] LABS: Lyme Ab w Rflx to Lyme Confirm Negative (Negative)
[2023-04-10 18:45] LABS: Anaplasma phagocytophilum Negative (Negative); B. miyamotoi PCR Negative (Negative); Babesia divergens/MO-1 Negative (Negative); Babesia duncani Negative (Negative); Babesia microti Negative (Negative); Ehrlichia chaffeensis Negative (Negative); Ehrlichia ewingii/canis Negative (Negative); Ehrlichia muris eauclairensis Negative (Negative)
== END 2023-04-06 02:58 | disposition home or self-care (01) ==
LOC: LBO 02:57
PROVIDERS: PCP Family Medicine; Visit Provider Physician Assistant
DX: N18.31 Chronic kidney disease, stage 3a; E78.5 Hyperlipidemia, unspecified
CPT/HCPCS: 36415; 87798; 85025; 86618

== ENCOUNTER 2023-05-25 00:22 | Outpatient (CLI) | payer MEDICARE, SELFPAY ==
--- NOTE | 2023-05-25 06:45 | ETT_ITS ---
APPROVED REPORT Exam: Exercise Treadmill Patient Location: Out-Patient Room/Bed: Stress Nurse: Kourtney Dobson RN Ordering Provider:FAY IZAGUIRRE MD, Contact Number: [phone] BMI: 42.44 Baseline Rhythm: Sinus Bradycardia Indications: RIZO, Medical History Medical History: HLD, CKD, Asthma, HTN, obesity, depression Cardiac Medications: Atorvastatin, HTZ, albuterol sulfate Allergies: Latex, terconazole, tetracycline Cardiac Risk Factors: Family hx, HTN, HLD, obesity, asthma Previous Cardiac Procedures: None Pretest Chest Pain Characteristics: None Exercise History: Indeterminate Physical Disabilities: None Lung Sounds: Clear to auscultation Heart Sounds: Regular Stress Test Details Test: Exercise stress testing was performed using a Corey protocol. Rest Stress HR Resting HR Supine: 59 bpm Max Heart Rate (APMHR): 153 bpm Resting HR Standin bpm Target HR (85% APMHR): 130 bpm Max HR Achieved: 152 bpm % of APMHR: 99 Recovery HR: 77 bpm HR response to stress: Normal HR response to stress BP Resting BP Supine: 140/82 mmHg Resting BP Standin/92 mmHg Max BP: 210/82 mmHg Recovery BP: 146/58 mmHg BP response to stress: Abnormal hypertensive response to stress. ECG Resting ECG: Sinus Bradycardia Ectopy: None Stress ECG: Sinus Tachycardia ST Change: No significant ST segment changes noted Arrhythmia: Rare PVC Recovery ECG: Sinus Rhythm Recovery ST Change: No significant ST segment changes noted Recovery Arrhythmia: None Clinical Reason for Termination: Target HR Achieved, Fatigue, Dyspnea Stress Symptoms: Mild Dyspnea, fatigue Exercise duration: 03 min32 sec Highest Stage Reached: Stage 2: 2.5 mph at 12% grade. Exercise capacity: 5.27 METs Angina Score: None Bergeron Treadmill Score: 3.2 Rate Pressure Product: [id number] Stress ECG Conclusion 1. Resting electrocardiogram was normal 2. Patient exercised on the Corey protocol and completed a workload of 5.27 METS 3. Mildly hypertensive blood pressure response to exercise. Normal heart rate response to exercise. Patient achieved 99% of predicted heart rate for age 4. There was no electrocardiographic evidence of myocardial ischemia 5. There were no significant dysrhythmias Bergeron Treadmill Score is 3.2 which is Moderate risk. Stress Test Summary STAGE Time (mins) Speed (mph) Grade (%) HR BP SpO2 SYMPTOMS METS Supine 59 140/82 97 Standing 65 148/92 97 1 3 1.7 10 152 Mild dyspnea 4.5 1 min recovery 124 210/82 3 min recovery 72 190/82 98 6 min recovery 77 146/68 96 All symptoms resolved.
== END 2023-05-25 00:42 ==
LOC: DI 00:22
PROVIDERS: PCP Family Medicine; Visit Provider Family Medicine
DX: R06.09 Other forms of dyspnea (principal)
CPT/HCPCS: 93016; 93018; 93017

== ENCOUNTER 2023-10-15 16:52 | Emergency (ER) | payer MEDICARE, SELFPAY ==
[2023-10-15 17:07] VITALS: BP 155/77; PULSE 60; RESP 18; TEMP 36; O2SAT 100
[2023-10-15 17:58] VITALS: BP 143/71; PULSE 49; RESP 16; O2SAT 100
[2023-10-15 17:59] VITALS: BP 143/71; PULSE 50; RESP 18; TEMP 36.4; O2SAT 100
--- NOTE | 2023-10-15 18:15 | RT.EKG_ITS ---
APPROVED REPORT Exam: Resting ECG Reason for Exam: epigastric pain Patient Location: E HR:57 bpm ECG Measurements Heart Rate 57 AXIS DC 152 P 64 QRSd 121 QRS 48 QT 470 T 48 QTc 457 Conclusion Sinus bradycardia...rate< 60 Nonspecific intraventricular conduction delay...QRSd >115mS, not LBBB/RBBB There are no significant changes compared to prior EKG performed on 11/07/2022 at 14:07.
[2023-10-15 19:20] LABS: Abs Immature Grans 0.03 10^3/uL (0.0-0.06); Absolute Basophil Count 0.03 10^3/uL (0.0-0.2); Absolute Eosinophil Count 0.02 10^3/uL (0.0-0.7); Absolute Lymphocyte Count 1.59 10^3/uL (1.2-3.4); Absolute Monocyte Count 0.68 10^3/uL (0.1-0.8); Basophils % 0.3; Eosinophils % 0.2; HCT 40.1 % (36.0-46.0); HGB 13.5 g/dL (11.2-15.7); Immature Grans % 0.3; Lymphocytes % 15.7; MCH 31.5 pg (27.0-33.0); MCHC 33.7 % (32.0-36.0); MCV 94 fL (80-95); MPV 11.7 fL (8.0-11.0); Monocytes % 6.7; Neutrophils % 76.8; Platelet Count 265 10^3/uL (130-400); RBC 4.28 10^6/uL (3.93-5.22); RDW-SD 44.6 fL; WBC 10.15 10^3/uL (4.4-10.8)
[2023-10-15] MEDS: Metoclopramide 10 MG/2 ML VIAL 5 MG IVP (19:28)
[2023-10-15] MEDS: Normal Saline 500 ML 1000 ML IV (19:28)
[2023-10-15 19:38] LABS: Bilirubin Negative (Negative); Blood Negative (Negative); Clarity Clear (Clear); Glucose Negative (Negative); Ketones 15 mg/dL (Negative); Leukocyte Esterase Small (Negative); Nitrite Negative (Negative); Specific Gravity 1.025 (1.005-1.025); Urobilinogen 0.2 mg/dL (Up to 0.2); pH 7.5 (5-8)
[2023-10-15 19:49] LABS: Bacteria Few HPF (Negative); C & S Indicated? No/Sq. Contamination; Casts Negative LPF (Negative); Crystals Negative HPF (Negative); Epithelial Cells Many HPF (Negative); Mucus Negative (Negative); RBC 0-2 HPF (0-2)
--- NOTE | 2023-10-15 20:11 | W.ED.GENAD ---
Discharge Plan Disposition Patient Disposition: Home Discharge Details Clinical Impression: Nausea & vomiting Primary Care Provider: Alexandra Baugh ED Provider: Jackie Del Angel Home Meds and New Rx's Prescriptions: New metoclopramide HCl [Reglan] 10 mg tablet 10 mg PO Q6H 7 Days Qty: 28 0RF magnesium chloride 64 mg tablet,delayed release (DR/EC) 64 mg PO QHS Qty: 14 0RF Continued hydrochlorothiazide 25 mg tablet 25 mg PO DAILY Patient Comments: TAKE ONE TABLET BY MOUTH EVERY DAY atorvastatin 40 mg tablet 40 mg PO DAILY Qty: 90 3RF albuterol sulfate 90 mcg/actuation HFA aerosol inhaler 2 inh IH QID PRN (Reason: dry cough) Qty: 18 4RF Asmanex HFA 100 mcg/actuation HFA aerosol inhaler 1 puff inhalation BID Qty: 13 12RF amlodipine 5 mg tablet 5 mg PO DAILY Qty: 90 3RF triamcinolone acetonide 0.1 % ointment 1 applic topical BID Qty: 80 1RF Rx Instructions: to affected area potassium chloride 10 mEq tablet extended release 10 meq PO BID tacrolimus 0.1 % ointment 1 applic topical BID Patient Comments: APPLY TOPICALLY TWICE A DAY estradiol 0.01 % (0.1 mg/gram) cream 1 appful vaginal .2xw cholecalciferol (vitamin D3) 1,000 UNIT capsule 1,000 unit PO DAILY Patient Comments: 06/09/16 pt reports only uses in winter months. bmr clobetasol-emollient 45 GM cream 45 gm Topical BID PRN Discharge Instructions Instructions: Acute Nausea and Vomiting (ED) Additional Instructions: Take Reglan as needed for nausea and vomiting Temporarily stop taking your amlodipine Take 20 mEq of potassium in the morning and 20 in the evening for the next 3 days Take magnesium daily Return earlier should he have new or worsening complaints Referrals: Alexandra Baugh MD [Primary Care Provider] - Discharge Data Discharge Date/Time-TO BE ENTERED AT DEPARTURE: 10/15/23 21:39 Medical Decision Making 68-year-old female with history of nausea and vomiting, denies any significant abdominal pain, some cramping in upper quadrant on left, denies chest pain or shortness of breath. States she received RSV vaccine yesterday and started amlodipine today as well. Abdomen with tenderness left upper quadrant, no rebound or guarding, alert and oriented, moist weakness membranes, no pallor, distal pulses intact Feeling symptomatic improvement after IV fluids and antiemetics, able to tolerate p.o., requesting discharge home BUN elevated likely consistent with dehydration, given 2 L and able to tolerate p.o. fluids Hypokalemic, will increase potassium consumption follow-up with PCP closely in the outpatient setting, will temporarily have patient discontinue amlodipine and follow-up with her doctor tomorrow Return precautions reviewed and patient expressed understanding Feeling improved at time of discharge home CT scan was ordered of abdomen and pelvis was did not show significant acute abnormality per radiology interpretation my review Urinalysis with 10-20 white blood cells, epithelials noted, do not suspect patient has urinary tract infection and will not treat with antibiotics at this time symptoms and Return precautions reviewed and patient expressed understanding Of note also mild hypomagnesemia, 1.7, patient will supplement with magnesium as well Antiemetics applied for home HPI General Date/Time Provider Initiated Documentation: 10/15/23 17:44. HPI Narrative: 68-year-old female presents with report of nausea, vomiting chills, chills, abdominal pain. She states that she started on a new blood pressure medicine and she received her RSV vaccine yesterday and is wondering if this is contributing to her symptoms. She states her symptoms started abruptly at 3:00 and she became nauseous and vomited. She denies any blood in vomitus. She denies any blood in her stool. She denies any current chest pain or shortness of breath. Related Data Home Medications Medication Instructions Recorded Confirmed cholecalciferol (vitamin D3) 25 1,000 unit PO DAILY 09/18/15 10/15/23 mcg (1,000 unit) capsule clobetasol-emollient 0.05 % 45 gm topical BID PRN 01/16/16 10/15/23 topical cream triamcinolone acetonide 0.1 % 1 applic topical BID #80 grams 01/16/22 10/15/23 topical ointment hydrochlorothiazide 25 mg tablet 25 mg PO DAILY 10/02/22 10/15/23 albuterol sulfate 90 mcg/actuation 2 inh inhalation QID PRN dry cough 12/11/22 10/15/23 aerosol inhaler #18 grams atorvastatin 40 mg tablet 40 mg PO DAILY #90 tabs 12/11/22 10/15/23 mometasone 100 mcg/actuation HFA 1 puff inhalation BID #13 grams 12/11/22 10/15/23 aerosol inhaler (Asmanex HFA) estradiol 0.01% (0.1 mg/gram) 1 appful vaginal .2xw 04/09/23 10/15/23 vaginal cream potassium chloride 10 mEq 10 meq PO BID 04/09/23 10/15/23 tablet,extended release tacrolimus 0.1 % topical ointment 1 applic topical BID 04/09/23 10/15/23 amlodipine 5 mg tablet 5 mg PO DAILY #90 tabs 10/13/23 10/15/23 magnesium chloride 64 mg 64 mg PO QHS #14 tabs 10/15/23 (magnesium chloride) tablet,delayed release metoclopramide HCl 10 mg tablet 10 mg PO Q6H 7 days #28 tabs 10/15/23 (Reglan) Previous Rx's Medication Instructions Recorded triamcinolone acetonide 0.1 % 1 applic topical BID #80 grams 01/16/22 topical ointment albuterol sulfate 90 mcg/actuation 2 inh inhalation QID PRN dry cough 12/11/22 aerosol inhaler #18 grams atorvastatin 40 mg tablet 40 mg PO DAILY #90 tabs 12/11/22 mometasone 100 mcg/actuation HFA 1 puff inhalation BID #13 grams 12/11/22 aerosol inhaler (Asmanex HFA) amlodipine 5 mg tablet 5 mg PO DAILY #90 tabs 10/13/23 magnesium chloride 64 mg 64 mg PO QHS #14 tabs 10/15/23 (magnesium chloride) tablet,delayed release metoclopramide HCl 10 mg tablet 10 mg PO Q6H 7 days #28 tabs 10/15/23 (Reglan) Allergies Allergy/AdvReac Type Severity Reaction Status Date / Time latex Allergy Mild Rash Verified 10/15/23 17:10 terconazole Allergy Mild Vaginal Verified 10/15/23 17:10 Contact Dermatitis tetracycline Allergy Mild Rash Verified 10/15/23 17:10 General Stated Complaint: Nausea/Vomit/Diar NIMESH: 3 PFSH All Active Problems (Updated 10/15/23 @ 21:31 by COLLIN Burt) Nausea & vomiting (Acute) Morbid obesity with BMI of 40.0-44.9, adult (Acute) Primary osteoarthritis of right knee (Acute) Fasting hyperglycemia (Acute) 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 Papanicolaou smear of vagina with atypical squamous cells of undetermined significance (ASC-US) Surgical History Colonoscopy - MAC (06/09/16) History of unilateral nephrectomy Family History Mother , AGE 86 No problems noted. Father , AGE 74 Diabetes Sister Depression Brother Hyperlipidemia Diabetes Brother Heart disease Son No problems noted. Son Congenital adrenal hyperplasia Maternal Grandmother , AGE 90 Heart disease Colon cancer Maternal Grandfather No problems noted. Paternal Grandmother , age 90 No problems noted. Paternal Grandfather No problems noted. Social History (Updated 04/09/23 @ 09:11 by Viviana Vaughn RN, RN) Smoking/Tobacco Use Status: Never Second Hand Exposure: Yes Smoking risk assessment performed?: Yes Alcohol Intake: current Alcohol Intake frequency: holidays/special occasions only Alcohol type: hard liquor Substance use type: former substance user and marijuana Caregiver/Support person: Yes Household members: spouse Housing: house Communication Needs: None Do you need help understanding health information?: Never Pets and animals: Yes Pets and animals: cat(s), bird(s) and farm animals Sexually active: Yes Do you think of yourself as: straight/heterosexual Current gender identity: decline to answer What is your relationship status?: living with partner How often do you talk on the phone with friends or family?: twice per week How often do you get together with friends or relatives?: once per week How often do you attend muslim or holiness services?: 1-3 times per year Do you belong to any clubs or organized social groups?: yes Panel score (0-1 are the most socially isolated patients): 3 What type of physical activity do you participate in: walking, bicycling and other Details: stationary bike Duration: < 15 minutes/day Frequency: 1-2 times per week Johanne/Presybeterian: Adventism Special johanne needs: Yes (Would like a sawmill hand ) Seatbelt use: always Drive intox or ride w/intox class b truck driver: No Do you feel safe at home: Yes Do you feel safe in your relationship?: Yes Course Vital Signs Vital signs: Vital Signs Temperature 36 C L 10/15/23 17:07 Pulse 60 10/15/23 17:07 Respiratory Rate 18 10/15/23 17:07 Blood Pressure 155/77 H 10/15/23 17:07 Pulse Oximetry 100 10/15/23 17:07 Temperature 36.4 C L 10/15/23 17:59 Temperature Source Temporal Artery Scan 10/15/23 17:59 Pulse 50 L 10/15/23 17:59 Respiratory Rate 18 10/15/23 17:59 Respiratory Effort Normal, Non-Labored 10/15/23 17:12 Blood Pressure 143/71 H 10/15/23 17:59 Blood Pressure Position Supine 10/15/23 17:59 Pulse Oximetry 100 10/15/23 17:59 Oxygen Delivery Method Room Air 10/15/23 17:59 Oxygen Flow Rate 0 10/15/23 17:58 Lab/Test Results Lab/Test Results: Laboratory Tests Range/Units 10/15/23 10/15/23 19:11 19:30 WBC (4.4-10.8) 10^3/uL 10.15 RBC (3.93-5.22) 10^6/uL 4.28 Hgb (11.2-15.7) g/dL 13.5 Hct (36.0-46.0) % 40.1 MCV (80-95) fL 94 MCH (27.0-33.0) pg 31.5 MCHC (32.0-36.0) % 33.7 RDW (11.7-14.6) % 13.0 Plt Count (130-400) 10^3/uL 265 MPV (8.0-11.0) fL 11.7 H Immature Gran % 0.3 Neutrophils % 76.8 Lymphocytes % 15.7 Monocytes % 6.7 Eosinophils % 0.2 Basophils % 0.3 Nucleated RBC % (0.0-0.3) % 0.0 Absolute Neutrophils (1.2-6.7) 10^3/uL 7.80 H Absolute Lymphocytes (1.2-3.4) 10^3/uL 1.59 Absolute Monocytes (0.1-0.8) 10^3/uL 0.68 Absolute Eosinophils (0.0-0.7) 10^3/uL 0.02 Absolute Basophils (0.0-0.2) 10^3/uL 0.03 Sodium Cancelled Potassium Cancelled Chloride Cancelled Carbon Dioxide Cancelled Anion Gap Cancelled BUN Cancelled Creatinine Cancelled Est GFR (CKD-EPI 2020) Cancelled Glucose Cancelled Calcium Cancelled Magnesium Cancelled Total Bilirubin Cancelled AST Cancelled ALT Cancelled Alkaline Phosphatase Cancelled Troponin I Cancelled Total Protein Cancelled Albumin Cancelled Lipase Cancelled Urine Color (Yellow) Yellow Urine Clarity (Clear) Clear Urine pH (5-8) 7.5 Ur Specific Mcgrath (1.005-1.025) 1.025 Urine Protein (Negative) mg/dL Negative Urine Ketones (Negative) mg/dL 15 H Urine Blood (Negative) Negative Urine Nitrite (Negative) Negative Urine Bilirubin (Negative) Negative Urine Urobilinogen (Up to 0.2) mg/dL 0.2 Ur Leukocyte Esterase (Negative) Small H Urine RBC (0-2) HPF 0-2 Urine WBC (0-5) HPF 10-20 H Ur Epithelial Cells (Negative) HPF Many Urine Crystals (Negative) HPF Negative Urine Bacteria (Negative) HPF Few Urine Casts (Negative) LPF Negative Urine Mucus (Negative) Negative Ur Culture Indicated? No/Sq. Contamination Urine Glucose (Negative) mg/dL Negative
[2023-10-15 20:13] LABS: COVID-19 PCR Negative (Negative); Influenza A PCR Negative (Negative); Influenza B PCR Negative (Negative); RSV PCR Negative (Negative)
[2023-10-15 20:16] LABS: Source NASOPHARYNX
[2023-10-15 20:21] LABS: ALT 33 U/L (14-59); AST 21 U/L (15-37); Albumin 3.6 g/dL (3.4-5.0); Alkaline Phosphatase 105 U/L (46-116); Anion Gap 9.1 mmol/L (3-11); BUN 26 mg/dL (7-18); Bilirubin, Total 0.7 mg/dL (0.2-1.0); CO2 27.9 mmol/L (21.0-32.0); Calcium 9.3 mg/dL (8.5-10.1); Chloride 103 mmol/L (98-107); Estimated GFR 61.75 (mL/min/1.73m2); Glucose 144 mg/dL (74-106); Magnesium 1.7 mg/dL (1.8-2.4); Potassium 3.3 mmol/L (3.5-5.1); Sodium 140 mmol/L (136-145); Total Protein 7.1 g/dL (6.4-8.2); Troponin I < 50 ng/L (<or=60)
[2023-10-15 20:27] LABS: Lipase 37 U/L (16-77)
[2023-10-15 20:36] VITALS: BP 140/67; PULSE 70; RESP 18; O2SAT 100
[2023-10-15] MEDS: Normal Saline - Diluent 50 ML VIAL IJ (20:39)
[2023-10-15] MEDS: Omnipaque 350 MG/ML 100 ML BTL IJ (20:39)
[2023-10-15] MEDS: Normal Saline Flush 10 ML SYR IVP (20:40)
--- NOTE | 2023-10-15 20:52 | DI.CT_ITS ---
Exam(s) CT ABDOMEN PELVIS W EXAM: CT ABDOMEN PELVIS W CLINICAL HISTORY: ruq pain. TECHNIQUE: Imaging Protocol: Axial computed tomography images with coronal and sagittal reformatted images were created and reviewed CONTRAST MATERIAL: Intravenous: Omnipaque-350 100cc Oral: None COMPARISON: No exams were available for comparison FINDINGS: VISUALIZED LUNG BASES: No nodules nor pleural effusions evident. ABDOMEN: There is no ascites. LIVER: There are no focal hepatic lesions evident. No dilated intrahepatic ducts. GALLBLADDER/BILIARY: No obvious gallbladder pathology. CBD is not dilated. PANCREAS: No evidence of pancreatic mass nor dilatation of the pancreatic duct. SPLEEN: Spleen is not enlarged. No obvious intrasplenic lesions. Splenic and portal veins are paten t. ADRENALS: There are no significant adrenal masses. Both adrenals appear unremarkable. KIDNEYS:There is a solitary left kidney. Measures normal size. No solid renal masses. No calculi n or hydronephrosis.. The right kidney is not seen and there is no evidence of an atrophic right kidne y nor pelvic kidney. No surgical clips evident in the renal fossa. ABDOMINAL AORTA: Abdominal aorta is not enlarged. LYMPH NODES:There is no retroperitoneal nor paraaortic adenopathy. ABDOMINAL WALL: No evidence of significant anterior abdominal wall nor inguinal hernia. GI: There is no evidence of bowel obstruction, free air, nor abscess. PELVIS: GI: No evidence of appendicitis.No evidence of sigmoid diverticulitis. LYMPH NODES: There is no intrapelvic nor inguinal adenopathy. REPRODUCTIVE: Uterus and adnexal regions appear unremarkable. There is no free fluid in the pelvis. URINARY BLADDER: No calculi nor obvious masses evident OSSEOUS: No fractures and no significant osseous lesions. IMPRESSION: 1. No acute findings in the abdomen and pelvis. 2. There is a solitary normal appearing left kidney noted. No surgical clips in the right renal efren a and no evidence of atrophic right kidney. 3. No obvious abnormality in the urinary bladder. RADIATION DOSE DELIVERED: Total DLP DATA REPOSITORY: All CT scans at this facility are submitted to the National Radiology Data Registry (NRDR) Dose Index Registry (DIR) with the [employer] (ACR). RADIATION OPTIMIZATION: All CT scans at this facility use at least one of these dose optimization te chniques: automated exposure control; mA and/or kV adjustment per patient size (includes targeted exa ms where dose is matched to clinical indication); or iterative reconstruction.
--- NOTE | 2023-10-15 21:07 | DI.VRAD_ITS ---
PROCEDURE INFORMATION: Exam: CT Abdomen And Pelvis With Contrast Exam date and time: 10/15/2023 8:41 PM Age: 68 years old Clinical indication: Abdominal pain; Other: Ruq TECHNIQUE: Imaging protocol: Computed tomography of the abdomen and pelvis with contrast. Contrast material: OMNI 350; Contrast volume: 100 ml; Contrast route: INTRAVENOUS (IV); COMPARISON: CR XR PORTABLE CHEST AP 11/07/2022 2:24 PM FINDINGS: Liver: Hepatomegaly and diffuse fatty infiltrationNo mass. Gallbladder and bile ducts: Normal. No calcified stones. No ductal dilation. Pancreas: Normal. No ductal dilation. Spleen: Normal. No splenomegaly. Adrenal glands: Normal. No mass. Kidneys and ureters: Right kidney not visualized. No hydronephrosis. Stomach and bowel: Unremarkable. No obstruction. No mucosal thickening. Appendix: No evidence of appendicitis. Intraperitoneal space: Unremarkable. No free air. No significant fluid collection. Vasculature: Unremarkable. No abdominal aortic aneurysm. Lymph nodes: Unremarkable. No enlarged lymph nodes. Urinary bladder: Unremarkable as visualized. Reproductive: Unremarkable as visualized. Bones/joints: Degenerative changes in the spine No acute fracture. Soft tissues: Unremarkable. IMPRESSION: No acute findings. Solitary left kidney without hydroureteronephrosis. Correlate with prior surgical report Dictated and Authenticated by: Brandon Epps MD. Ordering:STEVEN Mejia MD
[2023-10-15 21:38] VITALS: PULSE 70; RESP 18
== END 2023-10-15 21:39 | disposition home or self-care (01) ==
PROVIDERS: Emergency Provider Physician Assistant; PCP Family Medicine
DX: R11.2 Nausea with vomiting, unspecified (principal); R19.7 Diarrhea, unspecified; I10 Essential (primary) hypertension; I12.9 Hypertensive chronic kidney disease with stage 1 through stage 4 chronic kidney disease, or unspecified chronic kidney disease; N18.31 Chronic kidney disease, stage 3a; Z20.822 Contact with and (suspected) exposure to COVID-19; Z90.5 Acquired absence of kidney; E78.5 Hyperlipidemia, unspecified
CPT/HCPCS: 80053; 83690; 87637; 93005; 96374; 99285; 74177; 81003; 81015; 83735; 84484; 85025; 93010; 99284; J2765; J3490

== ENCOUNTER 2023-11-03 04:43 | Outpatient (CLI) | payer MEDICARE, SELFPAY ==
[2023-11-03 10:47] LABS: Anion Gap 7.4 mmol/L (3-11); BUN 25 mg/dL (7-18); CO2 28.6 mmol/L (21.0-32.0); CREATININE 1.1 mg/dL (0.55-1.02); Calcium 9.5 mg/dL (8.5-10.1); Chloride 104 mmol/L (98-107); Estimated GFR 55.07 (mL/min/1.73m2); Glucose 117 mg/dL (74-106); Potassium 3.7 mmol/L (3.5-5.1); Sodium 140 mmol/L (136-145)
== END 2023-11-03 04:44 | disposition home or self-care (01) ==
LOC: LBO 04:43
PROVIDERS: PCP Family Medicine; Visit Provider Internal Medicine Nephrology
DX: E83.42 Hypomagnesemia (principal)
CPT/HCPCS: 36415; 80048; 83735

== ENCOUNTER 2023-12-27 04:43 | Outpatient (CLI) | payer MEDICARE, SELFPAY ==
[2023-12-27 13:13] LABS: ALT 36 U/L (14-59); AST 20 U/L (15-37); Albumin 3.7 g/dL (3.4-5.0); Alkaline Phosphatase 111 U/L (46-116); Anion Gap 8.2 mmol/L (3-11); BUN 26 mg/dL (7-18); Bilirubin, Total 0.7 mg/dL (0.2-1.0); CO2 29.8 mmol/L (21.0-32.0); Calcium 9.9 mg/dL (8.5-10.1); Chloride 104 mmol/L (98-107); Estimated GFR 61.75 (mL/min/1.73m2); Glucose 107 mg/dL (74-106); Potassium 3.4 mmol/L (3.5-5.1); Sodium 142 mmol/L (136-145); Total Protein 7.6 g/dL (6.4-8.2)
[2023-12-27 13:21] LABS: Hemoglobin A1C 5.9 % (<5.7)
== END 2023-12-27 04:44 | disposition home or self-care (01) ==
LOC: LOS 04:43
PROVIDERS: PCP Family Medicine; Visit Provider Family Medicine
DX: I10 Essential (primary) hypertension (principal); E11.9 Type 2 diabetes mellitus without complications
CPT/HCPCS: 36415; 80053; 83036

== ENCOUNTER → 2024-02-25 12:03 | Outpatient (CLI) | payer MEDICARE, SELFPAY ==
--- NOTE | 2024-02-25 12:30 | DI.RAD_ITS ---
Exam(s) XR SHOULDER LT COMPLETE 2+V EXAM: XR SHOULDER LT COMPLETE 2+V CLINICAL HISTORY: non traumatic left shoulder pain, M25.512. TECHNIQUE: 2D digital imaging was performed. COMPARISON: No exams were available for comparison FINDINGS: Five views No evidence of fracture or dislocation nor abnormal soft tissue calcifications. There is an osteophy tic ridge on the undersurface of the acromion which may be causing an element of impingement despite normal subacromial space height. There are no obvious degenerative changes in the glenohumeral joint . No joint space narrowing. No osteophytes. Mild degenerative changes in the AC joint. Clavicle a ppears unremarkable. IMPRESSION: Mild findings as above. DATA REPOSITORY: RADIATION DOSE DELIVERED:
== END ==
PROVIDERS: PCP Family Medicine; Visit Provider Nurse Practitioner Acute Care
DX: M25.512 Pain in left shoulder (principal)
CPT/HCPCS: 73030

== ENCOUNTER 2024-03-08 14:21 | Outpatient (CLI) | payer MEDICARE, SELFPAY ==
--- NOTE | 2024-03-08 14:15 | RT.EKG_ITS ---
APPROVED REPORT Exam: Resting ECG Reason for Exam: Pre Op [facility] Patient Location: O HR:64 bpm ECG Measurements Heart Rate 64 AXIS MN 143 P 64 QRSd 111 QRS 32 QT 422 T 39 QTc 436 Conclusion Sinus rhythm...normal P axis, V-rate 50- 99 Normal Electrocardiogram
== END 2024-03-08 14:22 | disposition home or self-care (01) ==
LOC: DI.CM 14:22
PROVIDERS: PCP Family Medicine; Visit Provider Family Medicine
DX: Z01.818 Encounter for other preprocedural examination (principal)
CPT/HCPCS: 93010

== ENCOUNTER 2024-04-21 05:16 | Outpatient (CLI) | payer MEDICARE, SELFPAY ==
[2024-04-21 19:05] LABS: HBs Antibody, Quant <3.1 mIU/mL (See Note); Hep B Surface Ab Negative (See Note); Hepatitis B Core Antibody Negative (Negative); Hepatitis B Surface Antigen Negative (Negative)
[2024-04-21 19:06] LABS: HIV-1/2 Ag & Ab Screen Negative (Negative)
== END 2024-04-21 05:17 | disposition home or self-care (01) ==
LOC: LOS 05:16
PROVIDERS: PCP Family Medicine; Visit Provider Family Medicine
DX: Z00.00 Encounter for general adult medical examination without abnormal findings (principal); E11.51 Type 2 diabetes mellitus with diabetic peripheral angiopathy without gangrene; I70.209 Unspecified atherosclerosis of native arteries of extremities, unspecified extremity; Z11.59 Encounter for screening for other viral diseases
CPT/HCPCS: 36415; 86704; 86706; 87340; 87389; 83036

== ENCOUNTER 2024-08-27 19:37 | Emergency (ER) | payer MEDICARE, SELFPAY ==
[2024-08-27 19:39] VITALS: BP 179/80; PULSE 60; RESP 14; TEMP 35; O2SAT 98
--- NOTE | 2024-08-27 19:53 | ED.GENADUL_ITS ---
Discharge Plan Disposition Patient Disposition: Home Condition: Stable Discharge Details Clinical Impression: Cat bite Primary Care Provider: Ayad Kamara ED Provider: Mo Berry Home Meds and New Rx's Prescriptions: New amoxicillin-pot clavulanate 875-125 mg tablet 1 tab PO BID 7 Days Qty: 14 0RF No Action albuterol sulfate 90 mcg/actuation HFA aerosol inhaler 2 inh IH QID PRN (Reason: dry cough) Qty: 18 4RF losartan 25 mg tablet 12.5 mg PO DAILY Qty: 30 2RF Rx Instructions: per [facility], [facility] [place] triamcinolone acetonide 0.1 % ointment 1 applic topical BID Qty: 80 1RF Rx Instructions: to affected area tacrolimus 0.1 % ointment 1 applic topical BID Patient Comments: APPLY TOPICALLY TWICE A DAY estradiol 0.01 % (0.1 mg/gram) cream 1 appful vaginal .2xw cholecalciferol (vitamin D3) 1,000 UNIT capsule 1,000 unit PO DAILY Patient Comments: 06/09/16 pt reports only uses in winter months. bmr clobetasol-emollient 45 GM cream 45 gm Topical BID PRN hydrochlorothiazide 25 mg tablet 25 mg PO DAILY Qty: 90 1RF atorvastatin 40 mg tablet 40 mg PO DAILY Qty: 90 3RF potassium chloride 10 mEq tablet extended release 10 meq PO BID Qty: 180 3RF Asmanex HFA 100 mcg/actuation HFA aerosol inhaler 1 puff inhalation BID Qty: 13 12RF magnesium chloride 64 mg tablet,delayed release (DR/EC) 64 mg PO QHS Qty: 14 0RF Discharge Instructions Instructions: Animal Bites ED Additional Instructions: Please keep wounds clean and dry. Take antibiotics as prescribed. Please return to the emergency department for any worsening symptoms HPI General Date/Time Provider Initiated Documentation: 08/27/24 19:45 . HPI Narrative: 69-year-old female presents after being scratched and bit by her cat on her left arm, patient was cleaning her cat when it became agitated and called and bit her; cat is vaccinated, normal behaving no illness, patient irrigated her wounds with alcohol before arrival Related Data Home Medications ?Medication ?Instructions ?Recorded ?Confirmed cholecalciferol (vitamin D3) 25 1,000 unit PO DAILY 09/18/15 08/27/24 mcg (1,000 unit) capsule clobetasol-emollient 0.05 % 45 gm topical BID PRN 01/16/16 08/27/24 topical cream triamcinolone acetonide 0.1 % 1 applic topical BID #80 grams 01/16/22 08/27/24 topical ointment albuterol sulfate 90 mcg/actuation 2 inh inhalation QID PRN dry cough 12/11/22 08/27/24 aerosol inhaler #18 grams estradiol 0.01% (0.1 mg/gram) 1 appful vaginal .2xw 04/09/23 08/27/24 vaginal cream tacrolimus 0.1 % topical ointment 1 applic topical BID 04/09/23 08/27/24 magnesium chloride 64 mg 64 mg PO QHS #14 tabs 10/15/23 08/27/24 (magnesium chloride) tablet,delayed release hydrochlorothiazide 25 mg tablet 25 mg PO DAILY #90 tabs 10/29/23 08/27/24 atorvastatin 40 mg tablet 40 mg PO DAILY #90 tabs 12/13/23 08/27/24 potassium chloride 10 mEq 10 meq PO BID #180 tabs 02/14/24 08/27/24 tablet,extended release mometasone 100 mcg/actuation HFA 1 puff inhalation BID #13 grams 02/21/24 08/27/24 aerosol inhaler (Asmanex HFA) losartan 25 mg tablet 12.5 mg (1/2 x 25 mg) PO DAILY #30 03/08/24 08/27/24 tabs amoxicillin 875 mg-potassium 1 tab PO BID 7 days #14 tabs 08/27/24 clavulanate 125 mg tablet Previous Rx's ?Medication ?Instructions ?Recorded triamcinolone acetonide 0.1 % 1 applic topical BID #80 grams 01/16/22 topical ointment albuterol sulfate 90 mcg/actuation 2 inh inhalation QID PRN dry cough 12/11/22 aerosol inhaler #18 grams magnesium chloride 64 mg 64 mg PO QHS #14 tabs 10/15/23 (magnesium chloride) tablet,delayed release hydrochlorothiazide 25 mg tablet 25 mg PO DAILY #90 tabs 10/29/23 atorvastatin 40 mg tablet 40 mg PO DAILY #90 tabs 12/13/23 potassium chloride 10 mEq 10 meq PO BID #180 tabs 02/14/24 tablet,extended release mometasone 100 mcg/actuation HFA 1 puff inhalation BID #13 grams 02/21/24 aerosol inhaler (Asmanex HFA) losartan 25 mg tablet 12.5 mg (1/2 x 25 mg) PO DAILY #30 03/08/24 tabs amoxicillin 875 mg-potassium 1 tab PO BID 7 days #14 tabs 08/27/24 clavulanate 125 mg tablet Allergies Allergy/AdvReac Type Severity Reaction Status Date / Time latex Allergy Mild Rash Verified 08/27/24 19:43 terconazole Allergy Mild Vaginal Verified 08/27/24 19:43 Contact Dermatitis tetracycline Allergy Mild Rash Verified 08/27/24 19:43 General Stated Complaint: AnimalBite NIMESH: 4 Exam Narrative Exam Narrative: Superficial abrasions multiple nature less than 1.5 cm distributed over left forearm, no joint involvement no fluctuance purulence or active hemorrhage no lymphangitic streaking no palpable foreign bodies No other signs of trauma Course Vital Signs Vital signs: Vital Signs Temperature 35 C L 08/27/24 19:39 Pulse 60 08/27/24 19:39 Respiratory Rate 14 08/27/24 19:39 Blood Pressure 179/80 H 08/27/24 19:39 Pulse Oximetry 98 08/27/24 19:39 Temperature 35 C L 08/27/24 19:39 Temperature Source Temporal Artery Scan 08/27/24 19:39 Pulse 60 08/27/24 19:39 Respiratory Rate 14 08/27/24 19:39 Respiratory Effort Normal, Non-Labored 08/27/24 19:48 Blood Pressure 179/80 H 08/27/24 19:39 Blood Pressure Position Sitting 08/27/24 19:39 Pulse Oximetry 98 08/27/24 19:39 Oxygen Delivery Method Room Air 08/27/24 19:39 Oxygen Flow Rate 0 08/27/24 19:39 Pain Level 1 08/27/24 19:39 Medical Decision Making 69-year-old female presents after being bitten clawed by her cat while cleaning the animal at home, the cat is vaccinated and behaving normally otherwise, superficial abrasions to forearm of left upper extremity, no palpable foreign bodies no hemorrhage no purulence no fluctuance no lymphangitic streaking, neurovascular exam of limb intact with full range of motion soft compartments warm well-perfused sensate strong radial pulse; wound irrigated/cleansed with soapy water extensively here in department. Started on empiric Augmentin given animal bite, given Tdap given nature of wound and last vaccination over 6 years ago. 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 Basal cell carcinoma of cheek (11/27/13) Surgical History History of unilateral nephrectomy Colonoscopy - MAC (06/09/16) Family History (Updated 05/02/24 @ 15:36 by Asia Bolanos) Mother , AGE 86 No problems noted. Father , AGE 74 Diabetes Sister Depression Multifocal motor neuropathy Brother Hyperlipidemia Diabetes Brother Heart disease Son No problems noted. Son Congenital adrenal hyperplasia Maternal Grandmother , AGE 90 Heart disease Colon cancer Maternal Grandfather No problems noted. Paternal Grandmother , age 90 No problems noted. Paternal Grandfather No problems noted. Social History (Updated 05/02/24 @ 15:34 by Asia Bolanos) Smoking/Tobacco Use Status: Never Second Hand Exposure: Yes Smoking risk assessment performed?: Yes Alcohol Intake: current Alcohol Intake frequency: holidays/special occasions only Alcohol type: hard liquor Drug use: Never Substance use type: does not use Counseling given: No Adopted: No Caregiver/Support person: Yes Household members: spouse Housing: house Number of Children: 2 Communication Needs: None Education Level: vocational Do you need help understanding health information?: Never current occupation: Retired Pets and animals: Yes Pets and animals: cat(s), bird(s) and farm animals Sexually active: Yes Do you think of yourself as: straight/heterosexual Current gender identity: female and decline to answer What is your relationship status?: How often do you talk on the phone with friends or family?: three or more times per week How often do you get together with friends or relatives?: once per week How often do you attend roman catholic or sabianist services?: 4 or more times per year Panel score (0-1 are the most socially isolated patients): 3 What type of physical activity do you participate in: walking, bicycling and other Details: stationary bike Duration: 15-30 minutes/day Frequency: 1-2 times per week Johanne/Protestant: Mu-Ism Special johanne needs: Yes (Would like a gas regulator repairer helper ) Seatbelt use: always Helmet use: No Drive intox or ride w/intox clamp truck driver: No Firearms in home: Yes Firearms unloaded and locked: Yes Do you feel safe at home: Yes Do you feel safe in your relationship?: Yes Victim of physical abuse: No Victim of emotional abuse: No Victim of sexual abuse: No Would you like helpful sources: No
[2024-08-27] MEDS: Amoxicillin 875/Clav. 125 TAB PO (20:06)
[2024-08-27 20:10] VITALS: BP 181/75; PULSE 66; RESP 16; O2SAT 98
--- NOTE | 2024-08-27 20:31 | NUR.NOTE ---
Washed are with Surgical Scrub and Chlor prep, FPJ
== END 2024-08-27 20:10 | disposition home or self-care (01) ==
LOC: ER 20:01
PROVIDERS: Emergency Provider Emergency Medicine; PCP Family Medicine
DX: S50.872A Other superficial bite of left forearm, initial encounter (principal); Z23 Encounter for immunization; W55.01XA Bitten by cat, initial encounter
CPT/HCPCS: 90471; 90715; 99284; 99283

== ENCOUNTER 2025-05-01 11:32 | Outpatient (CLI) | payer MEDICARE, SELFPAY ==
[2025-05-01 12:53] LABS: Anion Gap 11.1 mmol/L (3-11); BUN 24 mg/dL (7-18); CO2 25.9 mmol/L (21.0-32.0); Calcium 9.1 mg/dL (8.5-10.1); Calculated LDL 79 mg/dL (<100); Chloride 103 mmol/L (98-107); Cholesterol 168 mg/dL (<200); Estimated GFR 60.98 (mL/min/1.73m2); Glucose 106 mg/dL (74-106); HDL Cholesterol 65 mg/dL (>or=50); Potassium 3.4 mmol/L (3.5-5.1); Sodium 140 mmol/L (136-145); Triglyceride 121 mg/dL (<150)
[2025-05-01 13:04] LABS: Hemoglobin A1C 5.8 % (<5.7)
== END 2025-05-01 11:33 | disposition home or self-care (01) ==
LOC: LOS 11:32
PROVIDERS: PCP Family Medicine; Visit Provider Family Medicine
DX: E87.1 Hypo-osmolality and hyponatremia (principal); R73.9 Hyperglycemia, unspecified; E78.5 Hyperlipidemia, unspecified
CPT/HCPCS: 36415; 80048; 80061; 83036

== ENCOUNTER 2025-09-28 13:41 | Outpatient (REF) | payer MEDICARE, SELFPAY ==
[2025-10-02 12:54] LABS: HSV 1 PCR Negative (Negative); HSV 2 PCR Negative (Negative); Specimen Source VAGINAL
== END 2025-09-28 13:42 | disposition home or self-care (01) ==
LOC: LBN 13:41
PROVIDERS: PCP Family Medicine; Visit Provider Physician Assistant
DX: R35.0 Frequency of micturition (principal); R10.20 Pelvic and perineal pain unspecified side; N90.89 Other specified noninflammatory disorders of vulva and perineum
CPT/HCPCS: 87529; 87086; 87480; 87510; 87660